=== PATIENT | male | born 1985 | race Caucasian/White ===

== ENCOUNTER 2020-02-22 23:11 | Emergency (ER) | payer OTHER ==
[~2020-02-22] VITALS: Ht 180.3 cm; Wt 81.6 kg
--- NOTE | 2020-02-22 23:33 | NUR ---
BIBS FOR C/O L TOE PAIN AND SWELLING & DISCOLORED NAIL S/P DROPPED SOMETHING ON HIS TOE 2 DAYS AGO TO ER BED 9
[2020-02-22] MEDS ORDERED: TRAMADOL HCL 50 MG TABLET ONE (23:51)
[2020-02-23] MEDS ORDERED: TRAMADOL HCL 50 MG TABLET PO ONE
--- NOTE | 2020-02-23 00:28 | NUR ---
Patient discharged to home in stable condition. Written and verbal after care instructions given. Patient verbalizes understanding of instruction.
[2020-02-23 00:29] VITALS: BP 127/75
== END 2020-02-23 00:30 | disposition home or self-care (01) ==
LOC: ER 23:11
DX: S90.112A Contusion of left great toe without damage to nail, initial encounter (principal); Z60.2 Problems related to living alone; W22.8XXA Striking against or struck by other objects, initial encounter; Y93.89 Activity, other specified; Y92.89 Other specified places as the place of occurrence of the external cause; Y99.8 Other external cause status
CPT/HCPCS: 73630-TC